=== PATIENT | female | born 1960 | race African-American/Black ===

== ENCOUNTER 2019-04-29 19:29 | Emergency (ER) | payer BC ==
[~2019-04-29] VITALS: Ht 165.1 cm; Wt 94.3 kg
--- NOTE | 2019-04-29 19:34 | NUR ---
Pt c/o Left sided C/P with tingling to right neck that radiates down to digits 2 and 3 of RHA x 2 weeks. Pt C/P is intermittent and sharp. Pt appears groggy, drifts to sleep easily. Pt states that she has a hx of a "heart attack" and when asked why she takes Eliquis she states "I don't know, ask the doctor." Addendum: 04/29/19 at 2223 by MELISA Generalized tenderness to upper chest wall per light palpation.
--- NOTE | 2019-04-29 19:34 | NUR ---
Patient to ER bed 04 to gown for evaluation. Side rails up. Report given to TEO Bean
[2019-04-29 19:47] VITALS: BP_SYST 122
[2019-04-29] MEDS ORDERED: ASPIRIN 81 MG TAB.CHEW PO ONE (20:15)
--- NOTE | 2019-04-29 20:15 | NUR ---
Dr. Moulton at bedside.
[2019-04-29 20:31] LABS: BASOPHILS % (AUTO) 1.1 % (0.0-2.0); EOSINOPHILS # (AUTO) 0.1 K/uL (0.0-0.4); EOSINOPHILS % (AUTO) 1.5 % (0.0-4.0); HEMATOCRIT 33.9 % (36-48); HEMOGLOBIN 11.3 g/dL (12.0-16.0); LYMPHOCYTES # (AUTO) 1.1 K/uL (1.0-5.5); LYMPHOCYTES % (AUTO) 28.4 % (20.5-51.5); MEAN CORPUSCULAR HEMOGLOBIN 29 pg (27-31); MEAN CORPUSCULAR HGB CONC 33 % (32-36); MEAN CORPUSCULAR VOLUME 88 fL (79.0-98.0); MONOCYTES # (AUTO) 0.3 K/uL (0.0-1.0); MONOCYTES % (AUTO) 8.5 % (1.7-9.3); NEUTROPHILS # (AUTO) 2.4 K/uL (1.8-7.7); NEUTROPHILS % (AUTO) 60.5 % (40.0-70.0); PLATELET COUNT (AUTO) 222 K/uL (130-430); RED BLOOD CELL COUNT(AUTO) 3.88 MIL/uL (4.2-6.2); RED CELL DISTRIBUTION WIDTH 14.1 % (9.0-15.0); WHITE BLOOD COUNT (AUTO) 3.9 K/uL (4.8-10.8)
--- NOTE | 2019-04-29 20:45 | NUR ---
X-ray at bedside.
[2019-04-29 20:47] LABS: CALCIUM 8.8 mg/dL (8.4-11.0); CREATININE 1.34 mg/dL (0.55-1.30); POTASSIUM 3.2 mmol/L (3.5-5.1)
[2019-04-29 20:53] LABS: ALBUMIN 3.6 g/dL (3.4-4.8); TOTAL BILIRUBIN 0.3 mg/dL (0.0-1.0)
[2019-04-29] MEDS ORDERED: POTASSIUM CHLORIDE 20 MEQ TAB.PRT.SR PO ONE (21:45)
[2019-04-29] MEDS ORDERED: IBUPROFEN 600 MG TABLET PO ONE (21:45)
--- NOTE | 2019-04-29 22:00 | NUR ---
No needs verbalized at this time.
[2019-04-29 22:30] VITALS: BP_SYST 120
--- NOTE | 2019-04-29 22:30 | NUR ---
Patient given written and verbal discharge instructions and verbalizes understanding. ER MD discussed with patient the results and treatment provided. Patient in stable condition. ID arm band removed. Rx of Motrin given. Patient educated on pain management and to follow up with PMD. Pain Scale 0/10. Opportunity for questions provided and answered. Medication side effect fact sheet provided. Pt discharged to ER waiting room in stable condition pending arrival of transportation to her home.
== END 2019-04-29 22:30 | disposition home or self-care (01) ==
LOC: SED 19:29
DX: R07.89 Other chest pain (principal); E87.6 Hypokalemia; F17.200 Nicotine dependence, unspecified, uncomplicated; F12.10 Cannabis abuse, uncomplicated; Z86.79 Personal history of other diseases of the circulatory system
CPT/HCPCS: 36415; 71045; 80053; 83880; 84484; 85025; 93005; 99284; J7030

== ENCOUNTER 2019-05-16 03:18 | Emergency (ER) | payer BC ==
[~2019-05-16] VITALS: Ht 165.1 cm; Wt 94.3 kg
[2019-05-16 03:20] VITALS: BP_SYST 130
[2019-05-16 03:45] VITALS: BP_SYST 130
[2019-05-16] MEDS ORDERED: HYDROcodone/ACETAMIN 5-325 MG TAB (NORCO/ VICODIN) PO ONE (03:45)
== END 2019-05-16 04:30 | disposition home or self-care (01) ==
LOC: SED 03:18
DX: G56.01 Carpal tunnel syndrome, right upper limb (principal)
CPT/HCPCS: 73090; 99283